=== PATIENT | male | born 2000 | race Caucasian/White ===

== ENCOUNTER 2024-02-02 01:19 | Emergency (ER) | payer MEDICAID ==
[~2024-02-02] VITALS: Ht 175.3 cm; Wt 74.8 kg
[2024-02-02 01:52] VITALS: BP 144/68; TEMP 98.1; O2SAT 98
[2024-02-02] MEDS ORDERED: FLUORESCEIN SODIUM OPHTH 1 EA STRIP ONE (01:57)
[2024-02-02] MEDS ORDERED: TETRAcaine 5 ML BOTTLE ONE (01:57)
[2024-02-02] MEDS ORDERED: CIPR2.5D14 LEFTEYE (02:02)
[2024-02-02] MEDS: TETRACAINE HCL 0.5% OPHTALMIC 15 ML BOTTLE OP ONE (03:30)
[2024-02-02] MEDS: FLUORESCEIN SODIUM OPHTH 1 EA STRIP OP ONE (03:30)
== END 2024-02-02 03:31 | disposition home or self-care (01) ==
LOC: ER 01:53
DX: S05.02XA Injury of conjunctiva and corneal abrasion without foreign body, left eye, initial encounter (principal); X58.XXXA Exposure to other specified factors, initial encounter; Y93.89 Activity, other specified; Y92.89 Other specified places as the place of occurrence of the external cause; Y99.8 Other external cause status